=== PATIENT | female | born 1965 | race Native Hawaiian/Other Pacific Islander ===

== ENCOUNTER 2020-07-22 10:46 | Outpatient (CLI) | payer OTHER | END 2020-07-22 21:59 | disposition home or self-care (01) | LOC: MAMMO 10:46 | DX: N64.59 Other signs and symptoms in breast (principal) | CPT/HCPCS: G0279 ==

== ENCOUNTER 2021-02-18 09:27 | Outpatient (CLI) | payer OTHER | END 2021-02-18 21:47 | disposition home or self-care (01) | LOC: MAMMO 09:27 | PROVIDERS: ATTEND Internal Medicine | DX: Z12.31 Encounter for screening mammogram for malignant neoplasm of breast (principal); N64.59 Other signs and symptoms in breast | CPT/HCPCS: G0279 ==

== ENCOUNTER 2022-05-09 12:03 | Outpatient (CLI) | payer OTHER ==
[2022-05-09 12:41] LABS: PLATELET COUNT 206 K/uL (152-353)
[2022-05-09 13:21] LABS: POTASSIUM 4.1 mmol/L (3.6-5.2)
== END 2022-05-09 18:59 | disposition home or self-care (01) ==
LOC: LABW 12:03
PROVIDERS: ATTEND Internal Medicine
DX: N18.32 Chronic kidney disease, stage 3b (principal); R53.83 Other fatigue
CPT/HCPCS: 36415; 80053; 81000; 82306; 82330; 82570; 82607; 82728; 82746; 83036; 83540; 83550; 83735; 83970; 84100; 84156; 84439; 84443; 85027; 85652; 86038

== ENCOUNTER 2022-09-28 12:19 | Outpatient (CLI) | payer OTHER | END 2022-09-28 21:59 | disposition home or self-care (01) | LOC: MRI 12:19 | PROVIDERS: ATTEND Internal Medicine | DX: R93.89 Abnormal findings on diagnostic imaging of other specified body structures (principal) | CPT/HCPCS: 36415; 82565; 84520; A9576 ==

== ENCOUNTER 2022-10-03 08:43 | Outpatient (CLI) | payer OTHER | END 2022-10-03 19:14 | disposition home or self-care (01) | LOC: MRI 08:43 | PROVIDERS: ATTEND Internal Medicine | DX: R93.89 Abnormal findings on diagnostic imaging of other specified body structures (principal) | CPT/HCPCS: 36415; 82565; 84520; A9576 ==

== ENCOUNTER 2023-08-16 09:38 | Outpatient (CLI) | payer OTHER | END 2023-08-16 19:35 | disposition home or self-care (01) | LOC: MAMMO 09:38 | PROVIDERS: ATTEND Internal Medicine | DX: Z12.31 Encounter for screening mammogram for malignant neoplasm of breast (principal); Z13.820 Encounter for screening for osteoporosis; N95.8 Other specified menopausal and perimenopausal disorders ==